=== PATIENT | male | born 1985 | race African-American/Black ===

== ENCOUNTER 2019-08-19 04:07 | Inpatient (IN) | payer SELFPAY ==
[2019-08-19] MEDS ORDERED: Ondansetron PF 4 MG/2 ML Vial IVP PRN (05:11)
[2019-08-19] MEDS ORDERED: hydrALAZINE 20 MG/ML VIAL SLOW IVP PRN (05:11)
[2019-08-19] MEDS ORDERED: Morphine 2 MG/ML SYRINGE SLOW IVP PRN ×2 (05:11→19:18)
[2019-08-19] MEDS ORDERED: Dextrose 50% Abboject 50 ML SYRINGE SLOW IVP PRN (05:11)
[2019-08-19] MEDS ORDERED: Morphine 4 MG/ML VIAL SLOW IVP PRN ×2 (05:11→19:19)
[2019-08-19] MEDS ORDERED: Dextrose 5% in Water 1,000 ML IV PRN (05:11)
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
[2019-08-19] MEDS: Sodium Chloride 0.9% 1,000 ML IV SCH ×3 (06:46→21:25)
[2019-08-19] MEDS: Ketorolac Tromethamine 30 MG/ML VIAL IVP SCH ×4 (06:46→23:26)
[2019-08-19] MEDS: Clindamycin/D5W 300 MG/50 ML BAG IVPB SCH ×3 (06:49→21:25)
[2019-08-19 07:05] LABS: #Basophils 0.1 thou/uL (0.0-0.2); #Eosinphils 0.1 thou/uL (0.0-0.7); #Lymphocytes 1.9 thou/uL (1.20-3.40); #Monocytes 0.7 thou/uL (0.11-0.59); #Neutrophils 4.8 thou/uL (1.40-6.50); %Basophils 0.9 % (0.0-1.0); %Eosinophils 1.4 % (0.0-10.0); %Lymphocytes 25.6 % (21.0-51.0); %Monocytes 9.1 % (0.0-10.0); Hemoglobin 14.5 g/dL (14.0-18.0); Mean Corpuscular HGB CONC 34.3 g/dL (32.0-36.0); Mean Corpuscular Hemoglobin 32.4 pg (27.0-31.0); Mean Corpuscular Volume 94.7 fL (78.0-98.0); Platelet Count 162 thou/uL (130-400); RBC Distribution Width 12.2 % (11.5-14.5); Red Blood Cell (RBC) Count 4.47 mill/uL (4.70-6.10); White Blood Cell (WBC) Count 7.6 thou/uL (4.8-10.8)
[2019-08-19 07:10] VITALS: BMI 19.5
[2019-08-19 07:14] LABS: INR-International Normal Ratio 0.9; Prothrombin Time 12.5 sec (12.0-14.7)
[2019-08-19 07:38] LABS: Alcohol Less than 10 mg/dL (Less than 10); Anion Gap 9 mmol/L (10-20); BUN (Urea Nitrogen) 12 mg/dL (8.9-20.6); Calc. Creatinine Clearance 97 mL/min (70-130); Calcium 8.3 mg/dL (7.8-10.44); Carbon Dioxide 24 mmol/L (22-29); Chloride 111 mmol/L (98-107); Estimated GFR-MDRD Greater than 90; Glucose 88 mg/dL (70-105); Magnesium 1.7 mg/dL (1.6-2.6); Phosphorus 2.8 mg/dL (2.3-4.7); Potassium 3.9 mmol/L (3.5-5.1); Sodium 140 mmol/L (136-145)
[2019-08-19] MEDS: Famotidine/PF 20 mg/2ml Vial SLOW IVP SCH ×2 (08:16→20:40)
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
[2019-08-19] MEDS ORDERED: Chlorhexidine Gluconate 15 ML UDCUP SSP SCH (13:40)
[2019-08-19 18:51] LABS: Amphetamine Not Detected (NotDetected); Barbiturates Screen Not Detected (NotDetected); Benzodiazepine Screen Not Detected (NotDetected); Cocaine Metabolite Screen Not Detected (NotDetected); Medtox Control Line Valid? VALID (VALID); Medtox Reader # READER 4; Methadone Not Detected (NotDetected); Methamphetamine Not Detected (NotDetected); Opiate Screen Detected (NotDetected); Oxycodone Screen Not Detected (NotDetected); Phencyclidine (PCP) Detected (NotDetected); THC/Cannabinoid Screen Detected (NotDetected); Tricyclic Screen Not Detected (NotDetected)
[2019-08-19] MEDS: Chlorhexidine Gluconate 15 ML UDCUP SSP SCH (20:39)
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
[2019-08-20] MEDS: Clindamycin/D5W 300 MG/50 ML BAG IVPB SCH ×3 (05:18→21:42)
[2019-08-20] MEDS: Ketorolac Tromethamine 30 MG/ML VIAL IVP SCH ×3 (05:18→18:41)
[2019-08-20] MEDS: Sodium Chloride 0.9% 1,000 ML IV SCH ×2 (06:44→16:28)
[2019-08-20] MEDS: Chlorhexidine Gluconate 15 ML UDCUP SSP SCH ×2 (08:34→21:19)
[2019-08-20] MEDS: Famotidine/PF 20 mg/2ml Vial SLOW IVP SCH ×2 (08:35→21:19)
[2019-08-20] MEDS ORDERED: Lidocaine 1% w/Epinephrine 1:100K 20 ML VIAL ONE (09:17)
[2019-08-20] MEDS ORDERED: Chlorhexidine Gluconate 15 ML UDCUP SSP ONE ×2 (09:17→09:21)
[2019-08-20] MEDS ORDERED: Fentanyl 250 MCG/5 ML VIAL ONE (09:28)
[2019-08-20] MEDS ORDERED: Midazolam HCl 2 mg/2 ml Vial ONE ×2 (09:28→09:29)
[2019-08-20] MEDS ORDERED: Phenylephrine 0.25% Nasal Spray 15 ML BOT ONE (09:31)
[2019-08-20] MEDS ORDERED: Lidocaine 2% Jelly 5 ML TUBE ONE (09:31)
[2019-08-20] MEDS ORDERED: Ketorolac Tromethamine 30 MG/ML VIAL ONE (11:23)
[2019-08-20] MEDS ORDERED: Dexamethasone 20 MG/5 ML VIAL ONE (11:23)
[2019-08-20] MEDS ORDERED: Ondansetron PF 4 MG/2 ML Vial ONE (11:23)
[2019-08-20] MEDS ORDERED: PROPOFOL 200 MG/20 ML VIAL ONE (11:23)
[2019-08-20] MEDS ORDERED: Glycopyrrolate 0.2 MG/ML 5 ML SYRINGE ONE (11:23)
[2019-08-20] MEDS ORDERED: Rocuronium Bromide 10 MG/ML (10ML VIAL) ONE (11:23)
[2019-08-20] MEDS ORDERED: diphenhydrAMINE 50 MG/ML VIAL ONE (11:23)
[2019-08-20] MEDS ORDERED: PHENYLEPHRINE-NS 100 MCG/ML 10 ML SYRINGE ONE (11:23)
[2019-08-20] MEDS ORDERED: Bacitracin Zinc Ointment 30 gm TUBE ONE (11:54)
[2019-08-20] MEDS ORDERED: Meperidine HCl/PF 25 MG/ML VIAL SLOW IVP PRN (13:10)
[2019-08-20] MEDS ORDERED: Promethazine HCl 25 MG/ML VIAL IM PRN (13:10)
[2019-08-20] MEDS ORDERED: Ondansetron HCl/PF 4 MG/2 ML Vial IVP PRN (13:10)
[2019-08-20] MEDS ORDERED: HYDROmorphone 2 MG/ML VIAL SLOW IVP PRN (13:10)
[2019-08-20] MEDS ORDERED: Promethazine HCl 25 MG/ML VIAL SLOW IVP PRN (13:10)
--- NOTE | 2019-08-20 17:00 | CT ---
CT OF THE FACIAL BONES: Date: 08-20-2019 Comparison: 08-19-2019 History: Evaluate following open reduction and internal fixation of the mandible. Technique: Axial CT imaging at 2.5 mm intervals through the facial bones without contrast with tucker l and sagittal reformatted imaging. FINDINGS: The imaged brain parenchyma appears grossly unremarkable. The frontal sinuses, maxillary sinuses, eth moid air cells, sphenoid sinuses and mastoid air cells appear well aerated. Imaged portions of the ce rvical spine demonstrate no acute findings. Orbital floor and medial orbital wall appears intact bilaterally. No evidence for dislocation of the temporomandibular joints. There is an obliquely oriented fracture involving the left mandibular condyle near the angle of the m andible. There is also an obliquely oriented fracture involving the more anterior aspect of the jami ble on the right. These fractures are nondisplaced. New surgical hardware traverses the right mandibu lar fracture. There is a nondisplaced fracture involving the lateral aspect of the pterygoid plate on the left. Wesley al bones, zygomatic arches, and right pterygoid plates are intact. IMPRESSION: Bilateral nasal bone fractures and left lateral pterygoid process fracture. POS: [facility]
[2019-08-20] MEDS ORDERED: Morphine 4 MG/ML VIAL SLOW IVP PRN (19:22)
[2019-08-20] MEDS ORDERED: traMADol HCl 50 MG TAB PO PRN ×2 (19:23)
[2019-08-20] MEDS: Senokot S 8.6-50 MG TAB PO SCH (21:17)
[2019-08-20] MEDS: Ibuprofen 100 MG/5 ML UDCUP PO SCH (21:18)
[2019-08-20] MEDS ORDERED: Ibuprofen 600 MG TAB PO SCH (22:00)
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
[2019-08-20] MEDS ORDERED: Acetaminophen 500 MG TAB PO SCH (23:59)
[2019-08-21] MEDS: Acetaminophen 650 MG/20.3 ML UDCUP PO SCH ×3 (00:29→12:01)
[2019-08-21] MEDS: Clindamycin/D5W 300 MG/50 ML BAG IVPB SCH (05:21)
[2019-08-21] MEDS: Ibuprofen 100 MG/5 ML UDCUP PO SCH (05:22)
[2019-08-21 05:37] LABS: Eosinophils 1 % (0-10); Lymphocytes 20 % (21-51); MDiff Complete? YES; Mean Corpuscular HGB CONC 34.7 g/dL (32.0-36.0); Mean Corpuscular Hemoglobin 32.1 pg (27.0-31.0); Mean Corpuscular Volume 92.5 fL (78.0-98.0); Mean Platelet Volume 8.4 fL (7.4-10.4); Monocytes 6 % (0-10); Neutrophil 72 % (42-75); Platelet Count 156 thou/uL (130-400); RBC Distribution Width 11.7 % (11.5-14.5); Reactive Lymphocytes 1 % (0-10); Red Blood Cell (RBC) Count 4.04 mill/uL (4.70-6.10); White Blood Cell (WBC) Count 10.8 thou/uL (4.8-10.8)
[2019-08-21 05:40] LABS: Anion Gap 9 mmol/L (10-20); BUN (Urea Nitrogen) 10 mg/dL (8.9-20.6); Calc. Creatinine Clearance 100 mL/min (70-130); Carbon Dioxide 26 mmol/L (22-29); Chloride 108 mmol/L (98-107); Estimated GFR-MDRD Greater than 90; Glucose 75 mg/dL (70-105); Magnesium 1.5 mg/dL (1.6-2.6); Phosphorus 2.8 mg/dL (2.3-4.7); Potassium 3.9 mmol/L (3.5-5.1); Sodium 139 mmol/L (136-145)
[2019-08-21] MEDS ORDERED: Magnesium Sulfate 3 GM, Admixture Fee 1 EACH in Sodium Chloride 0.9% 100 ML IVPB SCH (07:30)
[2019-08-21] MEDS: Chlorhexidine Gluconate 15 ML UDCUP SSP SCH (08:23)
[2019-08-21] MEDS: Senokot S 8.6-50 MG TAB PO SCH (08:24)
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
[2019-08-21 12:47] VITALS: BP 118/70; TEMP 98
[2019-08-21] MEDS ORDERED: Gabapentin 300 MG CAP PO SCH (15:00)
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
== END 2019-08-21 12:40 | disposition home or self-care (01) | DRG 131 ==
LOC: ERS 04:07 → SURG A 06:33
PROVIDERS: ADMIT Specialist; ATTEND Specialist
PROC: 0NSV04Z Reposition Left Mandible with Internal Fixation Device, Open Approach (ICD-10-PCS; principal; 2019-08-20)
PROC: 0NST04Z Reposition Right Mandible with Internal Fixation Device, Open Approach (ICD-10-PCS; 2019-08-20)
DX: S02.69XB Fracture of mandible of other specified site, initial encounter for open fracture (principal); S02.19XA Other fracture of base of skull, initial encounter for closed fracture; S02.2XXA Fracture of nasal bones, initial encounter for closed fracture; I10 Essential (primary) hypertension; F17.210 Nicotine dependence, cigarettes, uncomplicated; F12.10 Cannabis abuse, uncomplicated; Y08.89XA Assault by other specified means, initial encounter
CPT/HCPCS: 36415; 36600; 70450; 70486; 80048; 80306; 80307; 83735; 84100; 85007; 85025; 85027; 85610; 86850; 86900; 86901; C1713; G0390; J1100; J1200; J1885; J2250; J2270; J2405; J2704; J3010; J3475; J3490; S0028

== ENCOUNTER 2019-11-15 11:14 | Day surgery (SDC) | payer SELFPAY ==
[2019-11-13 11:54] VITALS: BMI 22.7
[~2019-11-15 11:14] MED LIST: Dexamethasone 20 MG/5 ML VIAL ONE; Ketorolac Tromethamine 30 MG/ML VIAL ONE; Lidocaine 1% PF 5 ML VIAL ONE; Metoclopramide HCl 10 MG/2 ML VIAL ONE; Ondansetron PF 4 MG/2 ML Vial ONE; PHENYLEPHRINE-NS 100 MCG/ML 10 ML SYRINGE ONE; PROPOFOL 200 MG/20 ML VIAL ONE; Rocuronium Bromide 10 MG/ML (10ML VIAL) ONE; Succinylcholine Chloride 20 MG/ML 10 ml SYRINGE FS ONE
[2019-11-15] MEDS ORDERED: Hydrocortisone 1% Cream 30 GM TUBE ONE (11:56)
[2019-11-15] MEDS ORDERED: Chlorhexidine Gluconate 15 ML UDCUP SSP ONE ×2 (11:56→13:54)
[2019-11-15] MEDS ORDERED: Lidocaine 1% w/Epinephrine 1:100K 20 ML VIAL ONE (11:56)
[2019-11-15 12:00] LABS: Acetaminophen Less than 6.0 mcg/mL (10.0-30.0); Alcohol Less than 10 mg/dL (Less than 10); Salicylate Less than 8.0 mg/dL (15.0-30.0)
[2019-11-15] MEDS ORDERED: Famotidine/PF 20 mg/2ml Vial ONE (12:02)
[2019-11-15] MEDS ORDERED: Meperidine HCl/PF 25 MG/ML VIAL ONE (12:02)
[2019-11-15] MEDS ORDERED: Fentanyl 100 MCG/2 ML VIAL ONE ×2 (12:02→15:22)
[2019-11-15] MEDS ORDERED: AFRIN NASAL MIST 15 ML BOT ONE (12:11)
[2019-11-15] MEDS ORDERED: SUGAMMADEX SODIUM 500 MG/5 ML VIAL ONE (12:11)
[2019-11-15] MEDS ORDERED: Lidocaine 2% Jelly 5 ML TUBE ONE (12:11)
[2019-11-15] MEDS ORDERED: Midazolam HCl 2 mg/2 ml Vial ONE (12:22)
[2019-11-15] MEDS ORDERED: Sodium Chloride 0.9% 10 ML ONE (12:56)
[2019-11-15] MEDS ORDERED: Bacitracin Zinc Ointment 30 gm TUBE ONE (14:17)
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
== END 2019-11-15 17:11 | disposition home or self-care (01) ==
LOC: SDC 11:14
PROVIDERS: ATTEND Dentist Oral and Maxillofacial Surgery
PROC: 0WP Anatomical Regions, General, Removal (ICD-10-PCS; principal; 2019-11-15)
DX: T84.69XA Infection and inflammatory reaction due to internal fixation device of other site, initial encounter (principal)
CPT/HCPCS: 36415; 80307; J0690; J1100; J1885; J2175; J2250; J2405; J2704; J2765; J3010; J3490; S0028